=== PATIENT | female | born 1965 | race Caucasian/White ===

== ENCOUNTER 2021-02-25 15:41 | Inpatient (IN) ==
[2021-02-25 16:27] LABS: Basophils % 0.5 %; Eosinophils # 0.1 K/mcL (0.0-0.6); Eosinophils % 1.4 %; Hematocrit 41.7 % (35.3-44.9); Hemoglobin 13.5 g/dL (11.5-15.4); Immature Granulocytes % 0.2 % (0-4); Lymphocytes # 2.7 K/mcL (0.6-4.6); Lymphocytes % 39.8 %; Mean Corpuscular HGB Conc 32.4 g/dL (31.6-35.5); Mean Corpuscular Volume 92.7 fL (83.0-100.0); Mean Platelet Volume 9.9 fL (9.4-12.4); Monocytes # 0.5 K/mcL (0.0-1.3); Monocytes % 7.8 %; Neutrophils # 3.4 K/mcL (1.6-8.9); Platelet Count 250 K/mcL (140-400); Red Cell Distribution Width 12.5 % (11.5-14.5); Segmented Neutrophils % 50.3 %; White Blood Count 6.7 K/mcL (4.3-11.1)
[2021-02-25 16:46] LABS: BUN/Creatinine Ratio 13 (6-26); Blood Urea Nitrogen 9 mg/dL (6-20); Calcium 10.1 mg/dL (8.6-10.3); Carbon Dioxide 27 mEq/L (23-29); Chloride 103 mEq/L (98-107); Glucose 99 mg/dL (70-105); Osmolality,Calculated 285 (280-300); Potassium 4.2 mEq/L (3.5-5.1); Sodium 138 mEq/L (136-145); Troponin I < 0.03 ng/mL (< 0.04); eGFR For African Americans > 60 (> 60); eGFR For Non-African Americans > 60 (> 60)
[2021-02-25] MEDS ORDERED: *HR* FentaNYL (PF) 100 MCG/2 ML VIAL IVP ONE ×2 (17:21→19:04)
[2021-02-25] MEDS ORDERED: Ondansetron 4 MG/2 ML VIAL IVP ONE (17:22)
[2021-02-25] MEDS ORDERED: Lidocaine/EPI 1:100k 1% 20 ML VIAL INFILT ONE (18:35)
[2021-02-25 18:48] LABS: INR 1.1; Prothrombin Time 12.2 Seconds (9.4-12.1)
[2021-02-25 18:51] LABS: Activated Partial Thrombo Time 37.8 Seconds (26.0-36.0)
[2021-02-25] MEDS ORDERED: Naloxone 0.4 MG/ML INJ IVP PRN (19:24)
[2021-02-25] MEDS ORDERED: *HR* Midazolam HCl 5 MG/5 ML VIAL IVP ONE ×2 (19:30→19:31)
[2021-02-25] MEDS: *HR* HYDROmorphone (PF) 1 MG/ML SYRINGE IVP PRN (21:07)
[2021-02-25] MEDS: Ondansetron 4 MG/2 ML VIAL IVP PRN (21:08)
[2021-02-26] MEDS: *HR* HYDROmorphone (PF) 1 MG/ML SYRINGE IVP PRN ×2 (01:40→05:52)
[2021-02-26] MEDS: Ondansetron 4 MG/2 ML VIAL IVP PRN ×2 (05:53→15:21)
[2021-02-26 06:48] LABS: Basophils % 0.2 %; Hematocrit 40.1 % (35.3-44.9); Hemoglobin 13.2 g/dL (11.5-15.4); Immature Granulocytes % 0.3 % (0-4); Lymphocytes # 1.7 K/mcL (0.6-4.6); Lymphocytes % 16.7 %; Mean Corpuscular HGB Conc 32.9 g/dL (31.6-35.5); Mean Corpuscular Hemoglobin 30.7 pg (28.0-33.3); Mean Corpuscular Volume 93.3 fL (83.0-100.0); Mean Platelet Volume 9.8 fL (9.4-12.4); Monocytes # 0.6 K/mcL (0.0-1.3); Neutrophils # 7.9 K/mcL (1.6-8.9); Platelet Count 234 K/mcL (140-400); Red Cell Distribution Width 12.1 % (11.5-14.5); Segmented Neutrophils % 76.8 %
[2021-02-26 06:49] LABS: White Blood Count 10.3 K/mcL (4.3-11.1)
[2021-02-26 07:12] LABS: BUN/Creatinine Ratio 18 (6-26); Blood Urea Nitrogen 12 mg/dL (6-20); Carbon Dioxide 25 mEq/L (23-29); Chloride 104 mEq/L (98-107); Glucose 108 mg/dL (70-105); Magnesium 1.9 mg/dL (1.6-2.6); Osmolality,Calculated 286 (280-300); Potassium 4.2 mEq/L (3.5-5.1); Sodium 138 mEq/L (136-145); eGFR For African Americans > 60 (> 60); eGFR For Non-African Americans > 60 (> 60)
[2021-02-26] MEDS: Acetaminophen 325 MG TABLET PO PRN (18:54)
[2021-02-26] MEDS: Gabapentin 400 MG CAPSULE PO SCH (23:40)
[2021-02-27] MEDS: Acetaminophen 325 MG TABLET PO PRN ×3 (01:53→21:09)
[2021-02-27] MEDS: Gabapentin 400 MG CAPSULE PO SCH ×3 (09:23→21:09)
[2021-02-27] MEDS: Ondansetron 4 MG/2 ML VIAL IVP PRN (09:24)
[2021-02-27] MEDS: Ketorolac 15 MG/ML VIAL IVP SCH ×2 (13:12→18:12)
[2021-02-28] MEDS: Ketorolac 15 MG/ML VIAL IVP SCH ×5 (00:10→23:36)
[2021-02-28] MEDS: Acetaminophen 325 MG TABLET PO PRN (03:32)
[2021-02-28] MEDS: Gabapentin 400 MG CAPSULE PO SCH ×3 (09:10→21:50)
[2021-03-01] MEDS: Ketorolac 15 MG/ML VIAL IVP SCH ×4 (06:04→23:48)
[2021-03-01] MEDS: Gabapentin 400 MG CAPSULE PO SCH ×3 (08:37→20:57)
[2021-03-01 21:03] VITALS: O2SAT 95
[2021-03-01 23:56] VITALS: PULSE 73
[2021-03-02 03:48] VITALS: BP 102/66; TEMP 97.6
[2021-03-02] MEDS: Ketorolac 15 MG/ML VIAL IVP SCH ×2 (05:11→12:08)
[2021-03-02] MEDS: Gabapentin 400 MG CAPSULE PO SCH (07:42)
== END 2021-03-02 15:29 | disposition home or self-care (01) | DRG 200 ==
LOC: 3NENU 15:41 → EMEROOARM 15:41 → 3NENU 20:31 → SUATTDRO 02-26 13:51
PROVIDERS: ADMIT Student in an Organized Health Care Education/Training Program; ATTEND Internal Medicine